=== PATIENT | female | born 1975 | race Caucasian/White ===

== ENCOUNTER 2017-02-12 16:00 | Inpatient (IN) | payer OTHER ==
[~2017-02-12] VITALS: Ht 152.4 cm; Wt 77.1 kg
--- NOTE | ~2017-02-12 | CON ---
PATIENT'S NAME: JAI JEAN [facility] AGE: 41 Y [address] ROOM: [place] [address] LOCATION: GI ADMIT DATE: 02/12/2017 Consultation DISCHARGE DATE: FAMILY PHYSICIAN: PHYSICIAN, UNKNOWN ATTENDING PHYSICIAN: RASHIDA GAN V DATE OF CONSULTATION: 02/12/2017 REFERRING PHYSICIAN: Gilberto Chambers MD HISTORY OF PRESENT ILLNESS: The patient is a 41-year-old female, transferred from [facility] with urosepsis secondary to a 4 to 5 mm proximal right ureteral stone with obstruction. The patient was admitted the previous day for IV hydration. The patient's condition deteriorated over the next 24 hours or so and was transferred to [facility]. Her creatinine had increased to 1.5. Her urine was noted to be nitrite positive with 10 to 20 white cells per high- power field. At [facility], the patient was tachycardiac with a temperature of 103. I discussed urgent cystoscopy with stent placement along with risks and benefits with the patient and her . PAST MEDICAL HISTORY: Significant for anxiety, depression, and allergic rhinitis. PAST OPERATIONS: Tubal ligation and x3. MEDICATIONS: At admission, none. ALLERGIES: VICODIN. SOCIAL HISTORY: The patient is nonsmoker and only occasionally consumes alcohol. REVIEW OF SYSTEMS: Was not obtained. PHYSICAL EXAMINATION: GENERAL: Middle-aged female in acute distress. LUNGS: Clear. CARDIAC: Tachycardic. ABDOMEN: Soft with right flank tenderness. IMPRESSION: PATIENT'S NAME: JAI JEAN [facility] AGE: 41 Y [address] ROOM: [place] [address] LOCATION: [facility] ADMIT DATE: 02/12/2017 Consultation DISCHARGE DATE: FAMILY PHYSICIAN: PHYSICIAN, UNKNOWN ATTENDING PHYSICIAN: RASHIDA GAN V Urosepsis with obstructing right proximal ureteral stone. PLAN: We will take her to operating room urgently for cystoscopy and stent placement. Following this, we will transfer her to PCU or intensive care unit. MD STACI PRO/prosper /[id number] d: 02/13/17 0052 t: 03/02/17 1915, CONSULTATION REPORT
--- NOTE | ~2017-02-12 | DS ---
PATIENT'S NAME: JAI JEAN [facility] AGE: 41 Y [address] ROOM: [place] [address] [place] [facility] [place]: 02/12/2017 Discharge Summary DISCHARGE DATE: 02/17/2017 FAMILY PHYSICIAN: Physician, Unknown ATTENDING PHYSICIAN: Darwin Jimenez V CONSULTING PHYSICIANS: Gilberto Chambers MD and Dr. King Jalloh. PRIMARY CARE PROVIDER: Dr. Meredith Nick PROCEDURES PERFORMED: Cystoscopy with stent insertion, right ureter done on 02/12/[address] Gilberto Chambers. DISCHARGE DIAGNOSES: 1. Severe sepsis with septic shock. 2. Acute hypoxic respiratory failure. 3. Acute kidney injury. 4. Bilateral pleural effusions. 5. Anasarca. 6. Right ureteral stone. 7. Gastroesophageal reflux disease. 8. Insomnia. 9. Severe metabolic acidosis. 10. Generalized weakness. HOSPITAL COURSE: Please refer to admitting history and physical as dictated by Dr. Darwin Jimenez. Briefly, the patient was admitted to [facility] with a right proximal UPJ stone with mild obstruction. Upon admit, she did have a fever of 103. She was tachycardic and hypotensive. She was started on Zosyn and the sepsis order set was utilized. She was also placed on vancomycin. Dr. Gilberto Chambers was consulted for the stone. Dilaudid was used for pain control. Dr. Chambers did take the patient for cysto and stent placement for the right ureteral stone. Postoperatively, she required two pressors due to her severe sepsis. She was in the ICU post cysto, albuterol nebulizers were ordered for shortness of breath and wheezing. Calcium was found to be 5.8. She was given 2 g of calcium gluconate. Bicarb was found to be 11.7, she was given an amp of bicarb IV and bicarb drip. Pulmonology was consulted due to her septic shock. It was felt as though her respiratory status was stable, she was requiring 3 to 5 L of oxygen. She was noted to have some acute kidney injury. This was pre renal due to the sepsis. This did can improve on the bicarb drip. Her pressors were weaned. She was started on Lovenox 40 mg subcu for DVT prophylaxis. She was able to tolerate a regular diet. Her ureteral stone and UTI were found as these were the focus for her severe sepsis with septic shock. PT and OT were consulted for generalized weakness for her gait and strengthening. She was transferred out PATIENT'S NAME: JAI JEAN [facility] AGE: 41 Y [address] ROOM: [id number] [place], [place] [address] [place] [facility] [place]: 02/12/2017 Discharge Summary DISCHARGE DATE: 02/17/2017 FAMILY PHYSICIAN: Physician, Unknown ATTENDING PHYSICIAN: Darwin Jimenez V of the ICU to med/surg with telemetry, continued on the Zosyn and vancomycin on 02/14/2017. Dilaudid was used for pain control. On 02/15/2017, there was a spike in her WBCs to 20.5. CT of the abdomen and pelvis were done at that time due to the increase in her WBCs. CT scan did show subcutaneous edema bilateral pleural effusions with free fluid in the abdomen and pelvis. The ureteral stent with no hydronephrosis or renal or ureteral stones identified. Her IV fluids were discontinued. Cultures of her urine were received from the outside facility which did show greater than 100,000 CFUs per mL of E coli. Her vancomycin and Zosyn were discontinued. She was started on Rocephin 1 g IV q.12 hours on 02/15/2017. After initiation of the Rocephin, she continued to improve. She was given Lasix IV for her generalized edema, anasarca, and bilateral pleural effusions. She was weaned off her oxygen. She had two small bowel movements prior to discharge. Her WBCs began to trend downward. The following day were 13.1, and subsequently 11.5 on the day of discharge. She had noted some difficulty sleeping. Melatonin was used for sleep. She was placed on Florastor for GI prophylaxis. On 02/17/2017, her Rocephin was discontinued. She was started on Ceftin 500 mg p.o. twice daily for 7 days. She did require some potassium oral replacement for potassium of 3.5 on the day of discharge. She was up ambulatory in her room. She was tolerating a regular diet. She had no further abdominal pain. Her acute kidney injury had resolved. On the day of discharge, creatinine 0.9, BUN 17. Her weakness had improved. Overall, she was stable. She will need close followup with Dr. Chambers for ESWL on 03/03/2017. On 02/17/2017 her vital signs were stable. It was felt as though she was stable to be discharged to home. She should follow up with . Meredith Nick is in 3 days with a CBC and renal at that time. Follow up with Dr. Chambers on 03/03/2017. I did call and speak with Dr. Meredith Nick prior to the patient's discharge from [facility]. LABORATORY DATA: Sodium 143 upon admit it did go as high as 147 and 145 prior to discharge. Potassium upon admit 3.3, did increase to 3.9. The lowest 3.2, prior to discharge 3.5. CO2 17 upon admit 29 prior to discharge. Anion gap 18.3 upon admit 11.5 prior to discharge. Calcium 6.4 upon admit it did drop as low as 5.8 and prior to discharge 8.3. BUN 16 upon admit 17 prior to discharge. Creatinine 1.6 upon admit 0.9 prior to discharge. AST 27, ALT 45. Phos 1.3 to 1.7. Mag is 1.0 upon admit 2.5 prior to discharge. WBCs 4.1 upon admit did trend up to as high as 20.5, subsequently back down to 13.1, and 11.5. Hemoglobin 8.9 to 10.2, hematocrit 26.7 to 32.2. Platelets 94 upon admit, dropped as low as 71, 115 prior to discharge. INR 1.6 and 1.7. UA leukocytes 500, nitrites positive, protein 100, glucose 50, ketones 5, blood 250, WBCs full field. Bacteria few. Blood cultures, no growth to date. Final blood cultures are currently pending. Urine culture, no growth at two days. Radiology reports. Ultrasound of the kidneys done on 02/12/2017, showed mild PATIENT'S NAME: JAI JEAN [facility] AGE: 41 Y [address] ROOM: [address] [place], [place] [address] [place] [facility] [place]: 02/12/2017 Discharge Summary DISCHARGE DATE: 02/17/2017 FAMILY PHYSICIAN: Physician, Unknown ATTENDING PHYSICIAN: Darwin Jimenez V fullness of the right renal collecting system. CT abdomen and pelvis please refer to hospital course. DISCHARGE INSTRUCTIONS: The patient will be discharged to home. DISCHARGE DIET: As tolerated. ACTIVITY: As tolerated. FOLLOWUP: Follow up with Dr. Meredith Nick with CBC and renal in 3 days. Follow up with Dr. Chambers on 03/03/2017 for ESWL and avoid NSAIDs. DISCHARGE MEDICATIONS: 1. Colace 100 mg p.o. twice daily. 2. Florastor 250 mg p.o. twice daily x10 days. 3. Tylenol 650 mg p.o. every 4 hours as needed for pain. 4. Ceftin 500 mg p.o. b.i.d. x7 days. Thank you for allowing us to participate in the care of this patient as she has been hospitalized at [facility]. Time spent at the bedside as well as coordinating care, 35 minutes. SYBIL MCKEON APRN FOR MD RAMÍREZ VALDES/prosper /[id number] CC: Meredith Nick MD [place] d: 02/18/17 1528 t: 03/23/17 0857, DISCHARGE SUMMARY
--- NOTE | ~2017-02-12 | HP ---
PATIENT'S NAME: JAI JEAN [facility] AGE: 41 Y [address] ROOM: [place] [id number] LOCATION: [facility] ADMIT DATE: 02/12/2017 History & Physical DISCHARGE DATE: FAMILY PHYSICIAN: PHYSICIAN, UNKNOWN ATTENDING PHYSICIAN: RASHIDA GAN V DATE OF SERVICE: CHIEF COMPLAINT: Flank pain. HISTORY OF PRESENT ILLNESS: The patient is a 41-year-old female. She was previously healthy. She presented to the hospital in [place] yesterday with complaints of right flank pain, nausea, and vomiting. She was found to have a 4 x 5 mm small right proximal UPJ stone with mild obstruction. She had grossly positive urine. She was started on ciprofloxacin. She did have a fever there of 101.4 in the course of her hospital stay. This is from yesterday. Today, the patient had worsening discomfort as well as a decreased urine output. She also was more tachycardic. She also had a creatinine elevation from 1.0-1.5-1.7 later in the day. At this point, they performed a bladder scan and she only had about 250 mL there. At this point, I was contacted and a transfer was requested. I accepted the patient. Upon arriving here, the patient is tachycardic in 120s and blood pressure is 100/60. She has received some Dilaudid en route, but was also considerably hypoxic here at 87% requiring 2-3 L nasal cannula to improve her saturation into mid 90s. At this point, she endorses continued right flank discomfort, but also appears to have rigors. REVIEW OF SYSTEMS: Positive for recurrent nausea with possible aspiration, but no chest pain or syncope. PAST MEDICAL HISTORY: Significant for 3 C-sections. CURRENT MEDICATIONS: At home are none. SOCIAL HISTORY: Negative for any toxic habits. PATIENT'S NAME: JAI JEAN [facility] AGE: 41 Y [address] ROOM: [address] [address] LOCATION: [facility] ADMIT DATE: 02/12/2017 History & Physical DISCHARGE DATE: FAMILY PHYSICIAN: PHYSICIAN, UNKNOWN ATTENDING PHYSICIAN: RASHIDA GAN V FAMILY HISTORY: Significant for diabetes in her father. PHYSICAL EXAMINATION: VITAL SIGNS: Temperature 103.1, pulse is 130, respirations 20, blood pressure 104/62, and saturating 94% on 3 L nasal cannula. GENERAL: Acutely toxic female with shivering, with rigors. HEENT: ENT: Exam reveals dry mucous membranes. Eye exam shows pupils are equal and reactive to light. LYMPHATIC: Exam shows no cervical lymphadenopathy. ENDOCRINE: Exam shows no thyromegaly. LUNGS: Exhibit crackles approximately 1/[address] up from the left base. HEART: Rate is tachycardic and regular. GI: Abdomen soft. : Right costovertebral angle tenderness is present. VASCULAR: Exam reveals 2+ pedal pulses. MUSCULOSKELETAL: Exam shows no muscle or joint abnormalities. PSYCHIATRIC: Exam reveals appropriate mood, cognition, and affect. SKIN: Quite warm and dry. DIAGNOSTIC DATA: No final studies are available from [facility] as of yet. A preliminary ultrasound was read as mild fullness of the right pelvic collecting system. No stone was appreciated. ASSESSMENT AND PLAN: This is a 41-year-old female who will be admitted with, 1. Severe sepsis. She meets all the criteria for septic shock. I have ordered for the patient to receive a dose of Zosyn right now. We will aggressively fluid resuscitate her. We will order a sepsis bundle and monitor her lactate and support her perfusion status. While the source of the sepsis is likely the stone, given her history of vomiting as well as lung exam and hypoxia, we will have to make sure it is not a pneumonia as well. 2. Acute hypoxic respiratory failure. This is likely due to aspiration/pneumonia. We will get a chest x-ray and try and get some sputum cultures. We will broadly cover her with vancomycin and Zosyn given that she came from the hospital and nausea and vomiting took place there. 3. Urolithiasis. I have requested for an emergent consultation with Urology. 4. Deep venous thrombosis prophylaxis will be instituted once our workup is complete. Additional management will depend on clinical course. PATIENT'S NAME: JAI JEAN [facility] AGE: 41 Y [address] ROOM: [address] [place], [place] [address] LOCATION: [facility] ADMIT DATE: 02/12/2017 History & Physical DISCHARGE DATE: FAMILY PHYSICIAN: PHYSICIAN, UNKNOWN ATTENDING PHYSICIAN: RASHIDA GAN V Time dedicated to this patient's encounter is 35 minutes. MD Tania TIMMONS /[id number] D: [id number] T: [id number] HISTORY & PHYSICAL
--- NOTE | ~2017-02-12 | CON ---
[facility] AGE: 41 Y [address] ROOM: [place] [address] LOCATION: [facility] ADMIT DATE: 02/12/2017 Consultation DISCHARGE DATE: FAMILY PHYSICIAN: PHYSICIAN, UNKNOWN ATTENDING PHYSICIAN: RASHIDA GAN V DATE OF CONSULTATION: 02/13/2017 REFERRING PHYSICIAN: Gilberto Chambers MD REASON FOR REFERRAL: Critical care issues. HISTORY OF PRESENT ILLNESS: The patient is a 41-year-old woman who presented with hypotension after stenting of ureter for a kidney stone. She was transferred to the unit requiring 2 blood pressure supporting medications. She is currently on broad- spectrum antibiotic coverage. PAST MEDICAL HISTORY: ALLERGIES: VICODIN, ALTHOUGH THAT MAY BE MORE OF AN INTOLERANCE. ILLNESSES: None chronically. FAMILY HISTORY: Negative for significant similar disease. SOCIAL HISTORY: . Lives in [place]. SYSTEM REVIEW: As per HPI. PHYSICAL EXAMINATION: GENERAL: Awake, alert. Currently in no distress ENT: Unremarkable. NECK: Normal. CHEST: Normal. LUNGS: Diminished, but clear. HEART: Regular. Abdomen: Soft. EXTREMITIES: No clubbing or edema. ASSESSMENT: Septic shock secondary to urinary tract infection. [facility] AGE: 41 Y [address] ROOM: [place] [address] LOCATION: [facility] ADMIT DATE: 02/12/2017 Consultation DISCHARGE DATE: FAMILY PHYSICIAN: PHYSICIAN, UNKNOWN ATTENDING PHYSICIAN: RASHIDA GAN V PLAN: Agree with current plan for blood pressure support and antibiotic coverage. Adjust antibiotics based on cultures. We will follow with you. IVONE MEZA MD DEC/modl /[id number] d: 02/13/17 0807 t: 02/13/17 1303, CONSULTATION REPORT
--- NOTE | ~2017-02-12 | OR ---
PATIENT'S NAME: JAI JEAN [facility] AGE: 41 Y [address] ROOM: [place] [address] LOCATION: [facility]ICU ADMIT DATE: 02/12/2017 OR/Procedure Report DISCHARGE DATE: FAMILY PHYSICIAN: PHYSICIAN, UNKNOWN ATTENDING PHYSICIAN: RASHIDA GAN V SURGEON: Gilberto Chambers MD SENIOR MECHANICAL DEVELOPMENT ENGINEER: DATE OF PROCEDURE: 02/12/2017 PREOPERATIVE DIAGNOSIS: Urosepsis with proximal right renal stone. POSTOPERATIVE DIAGNOSIS: Urosepsis with proximal right renal stone. PROCEDURE PERFORMED: Cystoscopy, right stent placement. ANESTHESIA: MAC. COMPLICATIONS: None. INDICATION FOR PROCEDURE: The patient is a 41-year-old female, transferred from [facility] with a 5 x 4 mm proximal right ureteral stone with obstruction and urosepsis. DETAILS OF PROCEDURE: After informed consent was obtained, the patient was taken to the operating room urgently. A MAC anesthetic was applied. She was placed in dorsal lithotomy position. The groin area was prepped and draped in normal sterile fashion. Cystoscope was introduced into the urethra and bladder without difficulty. The right ureteral orifice was identified and cannulated with a guidewire up into the renal pelvis. I did not note extensive purulent drainage with guidewire placement. Next, a 6-Slovenian multi- length ureteral stent was passed up into the renal pelvis without resistance. Again only minimal purulent drainage was noted. The patient did tolerate the procedure and was transferred to the intensive care unit in guarded condition. MD STACI PRO/propser /[id number] d: 02/13/17111 t: 03/02/171917, OPERATIVE SUMMARY
[2017-02-12] MEDS ORDERED: ADVIL200 MG PO (18:05)
[2017-02-12 19:22] LABS: HEMOGLOBIN 9.7 g/dL (10.0-15.0); MCH 30.7 pg (27.0-34.0); MCHC 32.3 gm/dL (32.0-36.5); MCV 94.9 fl (83.0-98.0); MPV 10.1 fl (9.4-12.4); PLATELET COUNT 94 K/uL (150-450); RBC 3.16 M/uL (3.50-5.50); RDW-CV 13.5 % (11.9-14.6); WBC 4.1 K/uL (4.0-11.0)
[2017-02-12 19:24] LABS: BICARBONATE 15.5 mmol/L (18.0-23.0); PCO2 28 mmHg (35-45); PO2 66 mmHg (80-90)
[2017-02-12 19:34] LABS: INR - (THERAPEUTIC) 1.6 (0.9-1.1); PROTIME 17.1 SECONDS (9.6-11.1); PTT 35 SECONDS (25-32)
[2017-02-12 19:39] LABS: ALBUMIN 2.5 gm/dL (3.5-5.0); CREATININE 1.6 mg/dL (0.5-1.1); POTASSIUM 3.3 mMol/L (3.7-5.1); TOTAL BILIRUBIN 0.5 mg/dL (0.0-1.5); TOTAL PROTEIN 5.4 g/dL (6.0-8.4)
[2017-02-12 19:46] LABS: ANION GAP 18.3 (10.0-19.0); CALCIUM 6.4 mg/dL (8.5-10.5)
[2017-02-12 20:03] LABS: BANDED NEUTROPHIL # 1.3 K/uL (0.0-0.1); BANDED NEUTROPHILS % 31 %; LYMPHOCYTE # 0.3 K/uL (0.8-4.0); LYMPHOCYTE % 8 %; MONOCYTE # 0.1 K/uL (0.0-1.0); SEGMENTED NEUTROPHIL # 2.1 K/uL (1.8-7.8)
[2017-02-12 20:04] LABS: ABSOLUTE NEUTROPHIL CT (ANC) 3.3 K/uL (1.8-7.8); SEGMENTED NEUTROPHIL % 50 %
[2017-02-12 21:29] LABS: BICARBONATE 13.6 mmol/L (18.0-23.0); PCO2 29 mmHg (35-45); PO2 53 mmHg (80-90)
[2017-02-13 02:20] LABS: BICARBONATE 11.7 mmol/L (18.0-23.0); PCO2 27 mmHg (35-45); PO2 93 mmHg (80-90)
[2017-02-13 04:45] LABS: CREATININE 1.2 mg/dL (0.5-1.1); POTASSIUM 3.6 mMol/L (3.7-5.1)
[2017-02-13 04:51] LABS: ANION GAP 17.6 (10.0-19.0)
[2017-02-13 04:53] LABS: CALCIUM 5.8 mg/dL (8.5-10.5)
[2017-02-13 07:57] LABS: BICARBONATE 16.6 mmol/L (18.0-23.0); PCO2 33 mmHg (35-45); PO2 77 mmHg (80-90)
[2017-02-13 08:08] LABS: INR - (THERAPEUTIC) 1.7 (0.9-1.1); PROTIME 19.1 SECONDS (9.6-11.1)
[2017-02-13 08:13] LABS: HEMATOCRIT 29.2 % (33.0-46.0); HEMOGLOBIN 9.5 g/dL (10.0-15.0); MCH 30.4 pg (27.0-34.0); MCHC 32.5 gm/dL (32.0-36.5); MCV 93.3 fl (83.0-98.0); MPV 10.2 fl (9.4-12.4); PLATELET COUNT 83 K/uL (150-450); RBC 3.13 M/uL (3.50-5.50); RDW-CV 14.1 % (11.9-14.6); WBC 18.4 K/uL (4.0-11.0)
[2017-02-13 08:18] LABS: CREATININE 1.2 mg/dL (0.5-1.1); POTASSIUM 3.9 mMol/L (3.7-5.1)
[2017-02-13 08:20] LABS: ANION GAP 15.9 (10.0-19.0); CALCIUM 6.5 mg/dL (8.5-10.5)
[2017-02-13 08:41] LABS: BILIRUBIN URINE NEGATIVE (NEGATIVE); BLOOD URINE 250 /UL (NEGATIVE); GLUCOSE URINE 50 mg/dL (NEGATIVE); KETONE URINE 5 mg/dL (NEGATIVE); LEUKOCYTES URINE 500 /UL (NEGATIVE); NITRITE URINE POSITIVE (NEGATIVE); PROTEIN URINE 100 mg/dL (NEGATIVE); UROBILINOGEN URINE 1 mg/dL (NORMAL)
[2017-02-13 08:45] LABS: COLOR URINE BROWN (YELLOW); TURBIDITY URINE 3+ (CLEAR)
[2017-02-13 09:00] LABS: RBC URINE PACKED FIELD #/HPF (NEGATIVE)
[2017-02-13 09:04] LABS: BACTERIA URINE FEW (NEGATIVE); EPITHELIAL URINE 20-50 #/HPF (NEGATIVE); WBC URINE FULL FIELD #/HPF (NEGATIVE)
[2017-02-13 09:34] LABS: ABSOLUTE NEUTROPHIL CT (ANC) 16.6 K/uL (1.8-7.8); BANDED NEUTROPHIL # 7.7 K/uL (0.0-0.1); BANDED NEUTROPHILS % 42 %; LYMPHOCYTE # 1.1 K/uL (0.8-4.0); LYMPHOCYTE % 6 %; MONOCYTE # 0.4 K/uL (0.0-1.0); SEGMENTED NEUTROPHIL # 8.8 K/uL (1.8-7.8); SEGMENTED NEUTROPHIL % 48 %
[2017-02-13 12:09] LABS: ANION GAP 12.9 (10.0-19.0); CREATININE 1.2 mg/dL (0.5-1.1); POTASSIUM 3.9 mMol/L (3.7-5.1)
[2017-02-13 12:15] LABS: CALCIUM 6.6 mg/dL (8.5-10.5)
[2017-02-13 17:34] LABS: BLOOD UREA NITROGEN 12 mg/dL (6-24); CHLORIDE 114 mMol/L (96-110); CO2 22 mMol/L (22-32); POTASSIUM 3.4 mMol/L (3.7-5.1)
[2017-02-13 17:40] LABS: ANION GAP 14.4 (10.0-19.0); CALCIUM 6.8 mg/dL (8.5-10.5); ESTIMATED GFR (MDRD EQUATION) > 60; SODIUM 147 mMol/L (135-145)
[2017-02-14 04:54] LABS: ALBUMIN 2.3 gm/dL (3.5-5.0); BLOOD UREA NITROGEN 11 mg/dL (6-24); CHLORIDE 112 mMol/L (96-110); CO2 25 mMol/L (22-32); CREATININE 0.8 mg/dL (0.5-1.1); ESTIMATED GFR (MDRD EQUATION) > 60; POTASSIUM 3.2 mMol/L (3.7-5.1)
[2017-02-14 04:55] LABS: ANION GAP 13.2 (10.0-19.0); CALCIUM 7.1 mg/dL (8.5-10.5); PHOSPHORUS 1.3 mg/dL (2.5-4.9); SODIUM 147 mMol/L (135-145)
[2017-02-14 04:57] LABS: HEMATOCRIT 26.7 % (33.0-46.0); HEMOGLOBIN 8.9 g/dL (10.0-15.0); MCH 30.5 pg (27.0-34.0); MCHC 33.3 gm/dL (32.0-36.5); MCV 91.4 fl (83.0-98.0); MPV 10.8 fl (9.4-12.4); PLATELET COUNT 71 K/uL (150-450); RBC 2.92 M/uL (3.50-5.50)
[2017-02-14 05:32] LABS: BANDED NEUTROPHIL # 5.9 K/uL (0.0-0.1); BANDED NEUTROPHILS % 33 %; LYMPHOCYTE # 1.4 K/uL (0.8-4.0); LYMPHOCYTE % 8 %; MONOCYTE # 0.5 K/uL (0.0-1.0); SEGMENTED NEUTROPHIL # 10.1 K/uL (1.8-7.8); SEGMENTED NEUTROPHIL % 56 %
[2017-02-15 02:12] LABS: HEMATOCRIT 27.9 % (33.0-46.0); HEMOGLOBIN 8.9 g/dL (10.0-15.0); MCH 29.8 pg (27.0-34.0); MCHC 31.9 gm/dL (32.0-36.5); MCV 93.3 fl (83.0-98.0); MPV 10.8 fl (9.4-12.4); RBC 2.99 M/uL (3.50-5.50); RDW-CV 14.1 % (11.9-14.6)
[2017-02-15 02:19] LABS: PLATELET COUNT 88 K/uL (150-450); WBC 20.5 K/uL (4.0-11.0)
[2017-02-15 02:46] LABS: ALBUMIN 2.3 gm/dL (3.5-5.0); BLOOD UREA NITROGEN 12 mg/dL (6-24); CALCIUM 7.6 mg/dL (8.5-10.5); CHLORIDE 111 mMol/L (96-110); CO2 26 mMol/L (22-32); CREATININE 0.9 mg/dL (0.5-1.1); ESTIMATED GFR (MDRD EQUATION) > 60; MAGNESIUM 2.5 mg/dL (1.3-2.6); POTASSIUM 3.7 mMol/L (3.7-5.1)
[2017-02-15 02:48] LABS: ANION GAP 13.7 (10.0-19.0); PHOSPHORUS 1.7 mg/dL (2.5-4.9); SODIUM 147 mMol/L (135-145)
[2017-02-15 03:22] LABS: ABSOLUTE NEUTROPHIL CT (ANC) 18.9 K/uL (1.8-7.8); BANDED NEUTROPHIL # 4.5 K/uL (0.0-0.1); BANDED NEUTROPHILS % 22 %; LYMPHOCYTE # 1.4 K/uL (0.8-4.0); LYMPHOCYTE % 7 %; MONOCYTE # 0.2 K/uL (0.0-1.0); SEGMENTED NEUTROPHIL # 14.4 K/uL (1.8-7.8); SEGMENTED NEUTROPHIL % 70 %
[2017-02-16 05:12] LABS: HEMATOCRIT 31.2 % (33.0-46.0); HEMOGLOBIN 9.8 g/dL (10.0-15.0); MCH 29.3 pg (27.0-34.0); MCHC 31.4 gm/dL (32.0-36.5); MCV 93.4 fl (83.0-98.0); PLATELET COUNT 100 K/uL (150-450); RBC 3.34 M/uL (3.50-5.50); RDW-CV 13.7 % (11.9-14.6); WBC 13.1 K/uL (4.0-11.0)
[2017-02-16 05:37] LABS: ALBUMIN 2.5 gm/dL (3.5-5.0); ALK PHOS 180 IU/L (33-138); ALT 45 IU/L (12-78); ANION GAP 12.3 (10.0-19.0); AST 27 IU/L (10-40); BLOOD UREA NITROGEN 16 mg/dL (6-24); CALCIUM 8.4 mg/dL (8.5-10.5); CHLORIDE 108 mMol/L (96-110); CO2 28 mMol/L (22-32); ESTIMATED GFR (MDRD EQUATION) > 60; POTASSIUM 3.3 mMol/L (3.7-5.1); SODIUM 145 mMol/L (135-145)
[2017-02-16 05:38] LABS: TOTAL BILIRUBIN 0.7 mg/dL (0.0-1.5)
[2017-02-16 06:21] LABS: BANDED NEUTROPHIL # 1.4 K/uL (0.0-0.1); BANDED NEUTROPHILS % 11 %; LYMPHOCYTE # 1.2 K/uL (0.8-4.0); LYMPHOCYTE % 9 %; MONOCYTE # 0.9 K/uL (0.0-1.0); SEGMENTED NEUTROPHIL # 9.6 K/uL (1.8-7.8); SEGMENTED NEUTROPHIL % 73 %
[2017-02-17 05:06] LABS: HEMATOCRIT 32.2 % (33.0-46.0); HEMOGLOBIN 10.2 g/dL (10.0-15.0); MCH 29.4 pg (27.0-34.0); MCHC 31.7 gm/dL (32.0-36.5); MCV 92.8 fl (83.0-98.0); PLATELET COUNT 115 K/uL (150-450); RBC 3.47 M/uL (3.50-5.50); RDW-CV 13.8 % (11.9-14.6); WBC 11.5 K/uL (4.0-11.0)
[2017-02-17 05:14] LABS: ANION GAP 11.5 (10.0-19.0); BLOOD UREA NITROGEN 17 mg/dL (6-24); CALCIUM 8.3 mg/dL (8.5-10.5); CHLORIDE 108 mMol/L (96-110); CO2 29 mMol/L (22-32); CREATININE 0.9 mg/dL (0.5-1.1); ESTIMATED GFR (MDRD EQUATION) > 60; POTASSIUM 3.5 mMol/L (3.7-5.1); SODIUM 145 mMol/L (135-145)
[2017-02-17 05:49] LABS: BANDED NEUTROPHIL # 2.3 K/uL (0.0-0.1); BANDED NEUTROPHILS % 20 %; LYMPHOCYTE # 1.5 K/uL (0.8-4.0); LYMPHOCYTE % 13 %; MONOCYTE # 0.7 K/uL (0.0-1.0); SEGMENTED NEUTROPHIL # 6.7 K/uL (1.8-7.8); SEGMENTED NEUTROPHIL % 58 %
[2017-02-17] MEDS ORDERED: COLACE100 MG PO (12:01)
[2017-02-17] MEDS ORDERED: FLORASTOR250 MG PO (12:02)
[2017-02-17] MEDS ORDERED: TYLENOL325 MG PO (12:03)
[2017-02-17] MEDS ORDERED: CEFTIN500 MG PO (12:03)
== END 2017-02-17 14:15 | disposition disaster alternative care site (69) | DRG 871 ==
LOC: GMSU 17:07 → GICU 17:07 → GMSU 02-14 14:11
PROVIDERS: Family Medicine; Internal Medicine; Internal Medicine Pulmonary Disease; Nurse Practitioner Family; ADMIT Internal Medicine
PROC: 0T768DZ Dilation of Right Ureter with Intraluminal Device, Via Natural or Artificial Opening Endoscopic (ICD-10-PCS; principal; 2017-02-12)
DX: A41.9 Sepsis, unspecified organism (principal); J69.0 Pneumonitis due to inhalation of food and vomit; J96.01 Acute respiratory failure with hypoxia; R65.21 Severe sepsis with septic shock; J90 Pleural effusion, not elsewhere classified; I95.9 Hypotension, unspecified; E87.2 Acidosis; N17.9 Acute kidney failure, unspecified; N20.1 Calculus of ureter; N39.0 Urinary tract infection, site not specified; N20.9 Urinary calculus, unspecified; R60.1 Generalized edema; B96.89 Other specified bacterial agents as the cause of diseases classified elsewhere
CPT/HCPCS: C1751; C1769; C9113; J0610; J0696; J0780; J1170; J1650; J1940; J2060; J2370; J2405; J2543; J2765; J3370; J3475; J3480; J7030; J7040; J7050; J7060; P9045

== ENCOUNTER → 2017-03-03 | Day surgery (SDC) | payer OTHER ==
[~2017-03-03] VITALS: Ht 152.4 cm; Wt 61.8 kg
[~2017-03-03] MED LIST: ADVIL200 MG PO; CEFTIN500 MG PO; COLACE100 MG PO; FLORASTOR250 MG PO; TYLENOL325 MG PO
--- NOTE | ~2017-03-03 | OR ---
PATIENT'S NAME: JAI JEAN [facility] AGE: 41 Y [address] ROOM: [place] [address] [place] [facility] [place]: 03/03/2017 OR/Procedure Report DISCHARGE DATE: FAMILY PHYSICIAN: ADAM MCKAY MD ATTENDING PHYSICIAN: Maribell Powell SURGEON: Maribell Powell MD KNOT PICKER CLOTH: DATE OF PROCEDURE: 03/03/2017 PREOPERATIVE DIAGNOSIS: Right nephrolithiasis. POSTOPERATIVE DIAGNOSIS: Right nephrolithiasis. PROCEDURE PERFORMED: Cystoscopy, stent removal, right retrograde pyelogram, stone extraction. ANESTHESIA: MAC. COMPLICATIONS: None. INDICATION FOR PROCEDURE: The patient is a 41-year-old female, who is status post cystoscopy for right stent placement for urosepsis secondary to a proximal obstructing ureter stone. DETAILS OF PROCEDURE: After informed consent was obtained, the patient was taken to the operating room. MAC anesthetic was applied, and she was placed in a dorsal lithotomy position on the cysto table. The groin area was prepped and draped in normal sterile fashion. Cystoscope was then introduced into the urethra and bladder without difficulty. The stent was identified in the right ureteral orifice and partially removed with alligator forceps. A guidewire was then passed through the stent up into the renal pelvis. Next, a yellow Flexi-Tip catheter was introduced into the distal ureter. Retrograde pyelograms were taken, which showed normal renal collecting system without filling defects or masses. There was no evidence of a stone present. The yellow Flexi-Tip catheter was removed and the system drained well. At that point, we noted the stone seen adjacent to the ureteral orifice. We then irrigated the stone out and sent it out for stone analysis. The bladder was then completely empty and the procedure terminated. The patient tolerated the procedure well and was transferred to recovery room in good condition. MARIBELL POWELL MD PATIENT'S NAME: JAI JEAN [facility] AGE: 41 Y [address] ROOM: [place] [address] [place] [facility] [place] DATE: 03/03/2017 OR/Procedure Report DISCHARGE DATE: FAMILY PHYSICIAN: ADAM MCKAY MD ATTENDING PHYSICIAN: Maribell Powell/prosper /[id number] d: 03/03/17 2356 t: 03/21/17 1236, OPERATIVE SUMMARY
== END | disposition disaster alternative care site (69) ==
LOC: GPOC 02-27 15:00 → GSDC 11:10 → GPOC 15:00
PROC: 0TC68ZZ Extirpation of Matter from Right Ureter, Via Natural or Artificial Opening Endoscopic (ICD-10-PCS; principal; 2017-03-03)
DX: N20.2 Calculus of kidney with calculus of ureter (principal); F41.9 Anxiety disorder, unspecified; F32.9 Major depressive disorder, single episode, unspecified; J30.9 Allergic rhinitis, unspecified; Z88.8 Allergy status to other drugs, medicaments and biological substances; Z98.51 Tubal ligation status; Z98.890 Other specified postprocedural states
CPT/HCPCS: C1769; J1956; J2405; J7120